=== PATIENT | female | born 1945 | race Caucasian/White ===

== ENCOUNTER 2019-03-22 06:20 | Inpatient (IN) ==
[2019-03-22] MEDS ORDERED: LR 1,000 ML ONE (07:11)
--- NOTE | 2019-03-22 07:17 | EKG Report ---
Test Performed on : 03/22/2019 07:06:51 AM Test Reason : Preop Blood Pressure : / mmHG Vent. Rate : 086 BPM Atrial Rate : 086 BPM P-R Int : 134 ms QRS Dur : 076 ms QT Int : 366 ms P-R-T Axes : 265 021 148 degrees QTc Int : 437 ms Unusual P axis and short NH, probable junctional tachycardia. with premature atrial complexes. ST & T wave abnormality, consider lateral ischemia Abnormal ECG When compared with ECG of 30-APR-2011 09:53, Junctional rhythm. has replaced Sinus rhythm. ST now depressed in Anterolateral leads T wave inversion now evident in Lateral leads Confirmed by Noel NGUYEN, Daylin Main ([id number]) on 03/26/2019 4:08:32 PM
[2019-03-22 07:32] LABS: BASO# 0.02 X1000 (0.0-0.2); BASO% 0.1 % (0.0-0.8); HEMATOCRIT 47.9 % (37.0-47.0); IMM GRAN# 0.06 X1000 (0.0-0.04); IMM GRAN% 0.3 % (0.0-0.5); MCH 28.8 PG (27-31); MCHC 33.4 g/dL (33-37); MCV 86.3 FL (81-99); MONO# 1.25 X1000 (0.11-0.59); NEUT# 14.83 X1000 (1.4-6.5); NEUT% 83.6 % (42.2-75.2); PLT 465 X1000 (130-400); RBC 5.55 XMIL (4.2-5.4); RDW 14.1 % (11.5-14.5); WBC 17.76 X1000 (4.8-10.8)
[2019-03-22] MEDS ORDERED: XYLOCAINE-MPF 2% ONE (07:46)
[2019-03-22] MEDS ORDERED: DIPRIVAN 1% ONE ×2 (07:47→08:18)
[2019-03-22 08:22] LABS: ALB/GLOB RATIO 1.3; ALBUMIN 4.5 g/dL (3.5-5.0); CALCIUM 10.8 mg/dL (8.8-10.2); TOTAL BILIRUBIN 0.76 mg/dL (0.20-1.00); TOTAL PROTEIN 8.1 g/dL (6.3-8.3)
[2019-03-22 08:27] LABS: POTASSIUM 2.5 mmol/L (3.5-5.1)
--- NOTE | 2019-03-22 09:12 | Diag Imaging Result Doc PS360 ---
CHEST-PORTABLE - 03/22/2019 INDICATION: s/p EGD, gastroparesis COMPARISON: 04/30/2011 FINDINGS: The lungs are normally expanded and clear. Heart size and mediastinal contours are normal. No pneumothorax or pleural effusion. IMPRESSION: Negative exam. Electronically signed by Umair Price 03/22/2019 9:10 AM
--- NOTE | 2019-03-22 10:15 | OPERATIVE NOTE ---
PROCEDURE DATE: 03/22/2019 PREOPERATIVE DIAGNOSES: 1. Upper abdominal pain. 2. Bloating. 3. Nausea. 4. Bilious vomiting with ultrasound revealing massive gastric dilation with no history of peptic ulcer disease. POSTOPERATIVE DIAGNOSES: Gastroparesis with 400 plus mL of bile in the stomach. PROCEDURE PERFORMED: Esophagogastroduodenoscopy, Helicobacter pylori biopsy. PROCEDURE IN DETAIL: The patient was brought to the GI lab after satisfactory IV sedation with propofol and anesthesia standby. Flexible gastroscope was introduced transorally without difficulty. Distal esophagus had some pooling of some greenish bile. On entry into the stomach, there was a massive amount of bile that was aspirated away, 400 plus mL. The stomach revealed significant dilation but no evidence of gross pathology including ulcer disease or carcinoma. The pylorus was widely patent. Duodenum appeared satisfactory. An H. pylori biopsy was taken at the distal antrum to rule out H. Pylori as the patient is a nondiabetic. Retroflexion revealed no ulceration at the lesser curve of the GE junction but, again, a large dilated patulous stomach. The scope was removed. The patient tolerated the procedure well with no evidence of aspiration. Her potassium is 2.5 so she will be admitted for potassium correction, gastric emptying study with nuclear medicine tomorrow, and a GI consultation. This does not appear surgical at this time. cc: Jose James MD
[2019-03-22 10:48] LABS: ALLEN TEST YES; BE 11.5 mmoll (-3.0-3.0); BLOOD TYPE ARTERIAL; HCO3-(ACT) 33.7 mmoll (20.0-26.0); METHB 1.4 % (0.0-1.5); O2HB 90.4 % (95.0-99.0); PCO2(98.6) 44 mmHg (35-45); PO2(98.6) 62 mmHg (60-100); SAMPLE BLOOD; SAO2 93.7 % (95.0-100.0); THB 15.8 g/dL (11.5-17.4); pH(98.6) 7.52 (7.35-7.45)
[2019-03-22 10:49] LABS: MODALITY ROOM AIR
[2019-03-22] MEDS: POTASSIUM CHLORIDE 10% LIQUID PO SCH ×2 (11:19→20:29)
[2019-03-22] MEDS: D5 1/2 NS + KCL 30 MEQ 1,000 ML IV SCH (11:19)
[2019-03-22] MEDS ORDERED: SODIUM CHLORIDE 0.9% INJ SCH (11:30)
[2019-03-22] MEDS: METAMUCIL PO SCH (12:27)
[2019-03-22] MEDS: MIRALAX PO SCH (12:27)
--- NOTE | 2019-03-22 13:08 | CONSULTATION ---
DATE OF CONSULTATION: 03/22/2019 CHIEF COMPLAINT: This is a medical consultation for hypokalemia. The patient had been having vomiting on and off for the past 5 days and was admitted this a.m. for an EGD per General Surgery. HISTORY OF PRESENTING ILLNESS: This is a 74-year-old female, who was admitted by General Surgery after she was having vomiting of bile on and off for the past 5 days, was found to have a gastric outlet obstruction, had an EGD per Dr. James, general surgeon. The patient states she had approximately a half a gallon of fluid removed from her abdomen this morning. She tolerated the procedure well. Her laboratory data showed a potassium of 2.5, a BUN of 45, a creatinine of 2.0, and so we will follow along during her hospitalization for medical management. PAST MEDICAL HISTORY: Hypothyroidism and vitamin D deficiency. PAST SURGICAL HISTORY: Hysterectomy, appendectomy, bilateral knee replacement, and bilateral shoulder replacement. FAMILY HISTORY: Reviewed and noncontributory. SOCIAL HISTORY: She currently lives alone. Denies any tobacco, alcohol, or illicit drug use. ALLERGIES: Lisinopril, latex, and natural rubber. HOME MEDICATIONS: She takes vitamin D3 2000 units p.o. daily, [employer] 10 1 p.o. b.i.d, and Synthroid 125 mcg p.o. daily. LABORATORY DATA: Showed a white blood cell count of 17.76, hemoglobin 16, hematocrit 47.9, platelets 465. Sodium 143, potassium 2.5, chloride 92, CO2 30, BUN of 45, creatinine 2, glucose 126. Carcinoembryonic AG 2.7. EKG showed a probable junctional tachycardia with premature atrial complexes at 86. Chest x-ray showed a negative exam. REVIEW OF SYSTEMS: She denied any fever, chills, blurred vision, dizziness, chest pain, coughing, shortness of breath. She denied any abdominal pain. She has had nausea and vomiting. Denied any constipation, diarrhea, burning or hurting with urination. PHYSICAL EXAMINATION: Vital signs: On arrival, she had a temperature of 97, pulse 83, respirations 16, blood pressure 122/78, saturating 95% on room air. General: This is a 74-year- old female , who is lying in the bed and answers questions appropriately. HEEMNT: Normocephalic, atraumatic. Normal ENT inspection. Oropharynx and nares are clear. Eyes: Pupils are equal, round, and reactive to light and accommodation. Extraocular movements are intact. Neck: Normal inspection. Normal range of motion. Lungs: Clear to auscultation bilaterally with equal lung expansion and chest wall movement. Heart: Regular rate and rhythm. No murmurs, rubs, or gallops. Abdomen: Soft, nontender, nondistended. Bowel sounds were present x4 quadrants. Musculoskeletal: She had 5/5 strength x4 extremities. Neurological: The cranial nerves II through XII were grossly intact. ASSESSMENT: 1. Gastric outlet obstruction with nausea and vomiting status post esophagogastroduodenoscopy per General Surgery today. 2. Hypokalemia. 3. Acute kidney injury. 4. Leukocytosis. PLAN: She was admitted to the Surgical Unit, placed on telemetry, incentive spirometry. She is on a clear liquid diet. She is status post her EGD, where she states they removed approximately a half a gallon of fluid. I do not have those reports available at this time but GI has also been consulted. She was started on potassium 20 mEq p.o. t.i.d., D5 and a half NS at 75 mL an hour. Continue her home medication. Recheck CBC, BMP in the a.m. Further orders after seen by attending and by consultants. We thank you for the opportunity to consult on this patient through her hospitalization. Dictated by RAMIREZ Booker for Guilherme Quinteros MD cc: RAMIREZ Booker MD Hugh C. Nabers, MD
[2019-03-22 14:38] LABS: URINE SOURCE CLEAN CATCH
[2019-03-22 14:44] LABS: BILIRUBIN URINE SMALL (NEGATIVE); BLOOD URINE NEGATIVE (NEGATIVE); COLOR YELLOW; GLUCOSE URINE NEGATIVE (NEGATIVE); KETONE URINE NEGATIVE (NEGATIVE); LEUKOCYTES URINE TRACE (NEGATIVE); NITRITE URINE NEGATIVE (NEGATIVE); PH URINE 5.5; PROTEIN URINE 50 mg/dL (NEGATIVE); SP GRAVITY URINE 1.023; TURBIDITY URINE HAZY (CLEAR); URINE BACTERIA NEGATIVE /HPF; URINE RBC <10 /HPF (<10); UROBILINOGEN URINE NORMAL (NORMAL)
[2019-03-22 14:45] LABS: UR EPITHELIAL CELLS <10 /HPF (<10)
[2019-03-22] MEDS ORDERED: ZOFRAN IV PRN (16:40)
--- NOTE | 2019-03-22 16:40 | GASTROENTEROLOGY CONSULTATION ---
DATE: 03/22/2019 ATTENDING PHYSICIAN: Jose James MD PRIMARY CARE DOCTOR: Leesa Boo MD REASON FOR CONSULTATION: Nausea/vomiting and gastric distension seen on EGD done today by Dr. James. HISTORY OF PRESENT ILLNESS: Ms Thompson is a 74-year-old female, who was admitted as an outpatient to have an EGD done with Dr. James, which showed evidence of bile retention in the stomach, 400 mL of bile was aspirated, and stomach biopsies obtained. According to the report of the EGD, there was no pyloric stenosis or gastric outlet obstruction noted. The patient has been having projectile vomiting for a few weeks. She had an ultrasound done which showed evidence of possible gastric distension. She also had possible nonvisualization or a contracted gallbladder. She has had a Cologuard done in October. She does not know the results of the test yet. She denies any vomiting blood or passing blood in the stools. She has history of constipation in the past. She takes narcotics at home as needed. She does takes psyllium at home for constipation. PAST MEDICAL HISTORY: Constipation. PAST SURGICAL HISTORY: Hysterectomy, appendectomy, joint replacement, and EGD done today. SOCIAL HISTORY: No history of alcohol or tobacco. No history of illicit drug abuse. MEDICATIONS AT HOME: Levothyroxine 125 mcg at home and vitamin D3 of 2000 units once daily and [place] as needed. FAMILY HISTORY: Noncontributory. ALLERGIES: Lisinopril and latex. REVIEW OF SYSTEMS: Denies any fevers, rigors, chills, chest pain, shortness of breath, dyspnea. Denies any vomiting or passing blood in the stools. She does complain of intermittent bilious vomiting and even throwing up her ice chips. She does complain of intermittent constipation. PHYSICAL EXAMINATION: Vital Signs: Temperature 97.5 degrees, pulse rate 76 per minute, respiratory rate 20, blood pressure of 140/63, saturating 97% on room air. Body weight: 205 pounds, BMI of 37.5 kg/m2 which is obese. General: Lying in bed, in no acute distress. HEENT: No pallor. No icterus. Pupils equal, reactive to light. Neck: Supple. Abdomen: Obese, soft. Mild discomfort in the periumbilical region. No rebound or guarding. Extremities: No cyanosis, clubbing. Neurological: Alert, awake, oriented x3. DIAGNOSTIC STUDIES: Hemoglobin 16, hematocrit 47.9, white count 17.76, platelet count 465,000, MCV 86.3. ABG showing pH 7.52, pCO2 of 45, PO2 of 62, this is on room air. Sodium 140, potassium 2.5, chloride 92, bicarbonate 30, anion gap 21, BUN 45, creatinine 2, glucose 126, calcium 10.8, total bilirubin 0.76, AST 14, ALT 12, alkaline phosphatase 71, total protein 8.1, albumin 4.5. CEA 2.7. Ultrasound of the abdomen done on 03/20/2019 showed: 1. Severely distended stomach suggesting gastroparesis or gastric outlet obstruction. 2. Nonvisualization of the gallbladder. 3. Borderline spleen size. 4. Common bile duct measuring 7 mm. Chest x-ray done today showed negative exam. ASSESSMENT AND PLAN: 1. Bilious vomiting. 2. Gastric distension, bile noted in the stomach. 3. Nonvisualization of the gallbladder. 4. Bloating. 5. Abdominal pain. 6. Hypokalemia. 7. Hypercalcemia. 8. Leukocytosis. 9. Elevated BUN and creatinine. RECOMMENDATIONS: We will need to obtain the results of Cologuard testing from Dr Boo's office. We will start her on PPIs in the form of Nexium once daily. We will start on Carafate 1 g every 6 hours. She will continue on IV fluids per Dr James. We will start her on MiraLAX and Metamucil for constipation. She may benefit from a HIDA scan. We will leave to the discretion of Dr James. She has hypokalemia and hypercalcemia and renal insufficiency. For that, Dr James has consulted the hospitalist team. Above plans were discussed with the patient, and all questions were answered. We will also follow up the results of the gastric emptying study. Further recommendations to follow pending the hospital course. cc: MD Jose Hyde MD Hiteshri S. Bhavsar, MD
[2019-03-22] MEDS: ZOFRAN IV PRN ×2 (17:07→21:30)
[2019-03-22] MEDS: NEXIUM IV SCH (20:29)
[2019-03-22] MEDS: CARAFATE LIQUID PO SCH (20:29)
[2019-03-22] MEDS: NORCO-10 PO SCH (22:12)
[2019-03-22] MEDS: PERIDEX MT SCH (22:13)
[2019-03-23] MEDS: D5 1/2 NS + KCL 30 MEQ 1,000 ML IV SCH (00:35)
[2019-03-23] MEDS: CARAFATE LIQUID PO SCH ×5 (01:50→20:44)
--- NOTE | 2019-03-23 02:07 | PROGRESS NOTE ---
DATE: 03/22/2019 REQUESTING PHYSICIAN: Dr. James. The patient is not many medical problems. A 74-year-old, looks like she has got hypothyroidism. She is obese, but as far as I can tell, no diabetes, but she presents with a large amount of liquid kind of reaccumulated in her stomach, dilated stomach, uncertain etiology. She was admitted for treatment. She was found to be in acute kidney injury, hypokalemia, and have evidence of either severe gastroparesis or gastric outlet obstruction. Dr. James' note states that the pylorus though is completely patent. I am not sure if we may need to do a small-bowel follow-through as well, but a gastroparesis study has been ordered for tomorrow, which I think will identify gastroparesis, and then possible treatment associated. We will continue IV fluids for her acute kidney injury and supplement her potassium and follow it closely. This is a [id number] encounter note with Isabelle Martínez cc: MD Jose Negrete MD MTDD
[2019-03-23] MEDS: ZOFRAN IV PRN ×4 (02:33→14:15)
[2019-03-23 06:18] LABS: BASO# 0.02 X1000 (0.0-0.2); BASO% 0.1 % (0.0-0.8); EOS# 0.05 X1000 (0.0-0.7); EOS% 0.4 % (0.0-10.0); HEMATOCRIT 44.6 % (37.0-47.0); HEMOGLOBIN 14.8 g/dL (12.0-16.0); IMM GRAN# 0.04 X1000 (0.0-0.04); IMM GRAN% 0.3 % (0.0-0.5); LYMPH% 9.3 % (20.5-51.1); MCH 29.4 PG (27-31); MCHC 33.2 g/dL (33-37); MCV 88.5 FL (81-99); MONO# 1.81 X1000 (0.11-0.59); MONO% 12.9 % (1.7-9.3); MPV 11.1 FL (7.4-10.4); PLT 371 X1000 (130-400); RBC 5.04 XMIL (4.2-5.4); RDW 14.2 % (11.5-14.5); WBC 14.02 X1000 (4.8-10.8)
[2019-03-23 06:37] LABS: HEMOGLOBIN A1C 5.2 % (4.8-6.0)
[2019-03-23 06:40] LABS: CALCIUM 9.7 mg/dL (8.8-10.2); CREATININE 2.1 mg/dL (0.5-0.9)
[2019-03-23] MEDS ORDERED: SYNTHROID PO SCH (07:00)
[2019-03-23] MEDS ORDERED: NS + KCL 20 MEQ 1,000 ML IV SCH (08:15)
--- NOTE | 2019-03-23 10:11 | Diag Imaging Result Doc PS360 ---
EXAM: GASTRIC EMPTYING HISTORY: Gastric distension on EGD with Dr James TECHNIQUE: Nuclear medicine gastric emptying exam COMPARISON: None. FINDINGS: 586 uCi of sulfur colloid ingested with neck biscuit. Imaging for two hours performed. There is normal emptying occurs during the exam. IMPRESSION: Markedly delayed gastric emptying. Electronically signed by Yash Taylor 03/23/2019 10:08 AM
[2019-03-23] MEDS: MIRALAX PO SCH (10:29)
[2019-03-23] MEDS: PERIDEX MT SCH ×2 (10:29→20:44)
[2019-03-23] MEDS: VITAMIN D PO SCH (10:29)
[2019-03-23] MEDS: NORCO-10 PO SCH ×3 (10:29→22:18)
[2019-03-23] MEDS: METAMUCIL PO SCH (10:30)
--- NOTE | 2019-03-23 12:02 | Diag Imaging Result Doc PS360 ---
CT ABDOMEN/PELVIS W/O CONTRAST - 03/23/2019 INDICATION: gastroparesis COMPARISON: None FINDINGS: The lung bases are clear and the heart size is normal. The stomach and proximal small bowel is severely distended compatible with small bowel obstruction. Indeed, numerous distal small bowel loops are severely collapsed. In the right lower quadrant, there is a round heterogeneous dense object causing the obstruction. This is compatible with a gallstone. This measures 2.7 cm in diameter. The colon is normal. The gallbladder itself is very collapsed with wall thickening and some gas presumably from the fistula extending into the small bowel. No free air or free fluid. Uterus is absent. Urinary bladder and rectum are normal. There are moderate degenerative changes of the spine. No acute or suspicious bony lesion. IMPRESSION: 1. Gallstone ileus with obstructing stone in the right lower quadrant. 2. Severely inflamed gallbladder with advanced trace amount of gas indicating the fistula. 3. This report was discussed with Dr. James on 03/23/2019 at 12:00 PM and was readback. This exam was performed using automated exposure control, adjustment of mA or kV according to patient size, and/or use of iterative reconstruction technique Electronically signed by Umair Price 03/23/2019 12:00 PM
--- NOTE | 2019-03-23 12:51 | Diag Imaging Result Doc PS360 ---
CHEST-PORTABLE - 03/23/2019 INDICATION: NG tube placement COMPARISON: 03/22/2019 FINDINGS: There is a nasogastric tube in good position in the stomach. The chest is grossly clear. There are several severely gaseous distended loops of small bowel as was seen on the CT compatible with small bowel obstruction. IMPRESSION: Good nasogastric tube placement. Electronically signed by Umair Price 03/23/2019 12:48 PM
[2019-03-23 14:04] LABS: CALCIUM 9.8 mg/dL (8.8-10.2); CREATININE 1.9 mg/dL (0.5-0.9); POTASSIUM 3.1 mmol/L (3.5-5.1)
[2019-03-23] MEDS: KEFZOL 1 GM/D5W 1 GM/50 ML IVPB IV SCH ×2 (14:15→20:44)
[2019-03-23] MEDS: MORPHINE IV PRN ×2 (14:15→20:52)
--- NOTE | 2019-03-23 15:44 | Diag Imaging Result Doc PS360 ---
US RENAL 2 (RETROPER) COMPLETE - 03/23/2019 INDICATION: decreased renal function TECHNIQUE: COMPARISON: CT from earlier today FINDINGS: The kidneys and urinary bladder are normal. No hydronephrosis. The right kidney measures 11.2 x 4.7 x 4.9 cm. The left kidney measures 11.9 x 4.9 x 6.6 cm. The urinary bladder contains clear urine. IMPRESSION: Negative exam. Electronically signed by Umair Price 03/23/2019 3:41 PM
[2019-03-23] MEDS: NEXIUM IV SCH (16:14)
[2019-03-23] MEDS ORDERED: CHLORASEPTIC SPRAY MT PRN (16:15)
[2019-03-23] MEDS ORDERED: ZOSYN 3.375 GM in NS 50 ML IV SCH (17:45)
[2019-03-23 17:57] LABS: URINE SOURCE VOIDED
[2019-03-23 18:02] LABS: BILIRUBIN URINE NEGATIVE (NEGATIVE); BLOOD URINE NEGATIVE (NEGATIVE); COLOR YELLOW; GLUCOSE URINE NEGATIVE (NEGATIVE); KETONE URINE NEGATIVE (NEGATIVE); LEUKOCYTES URINE NEGATIVE (NEGATIVE); NITRITE URINE NEGATIVE (NEGATIVE); PROTEIN URINE TRACE mg/dL (NEGATIVE); SP GRAVITY URINE 1.023; TURBIDITY URINE HAZY (CLEAR); UROBILINOGEN URINE NORMAL (NORMAL)
[2019-03-23 18:03] LABS: UR EPITHELIAL CELLS <10 /HPF (<10); URINE BACTERIA NEGATIVE /HPF; URINE RBC <10 /HPF (<10); URINE WBC <10 /HPF (<10)
[2019-03-23 18:12] LABS: UR CREAT RANDOM 153.7 mg/dL (11-20); UR PROT RANDOM 26.6 mg/dL
[2019-03-23] MEDS ORDERED: SODIUM CHLORIDE 0.9% INJ PRN (18:53)
[2019-03-23] MEDS: NS + KCL 20 MEQ 1,000 ML IV SCH (19:52)
--- NOTE | 2019-03-23 22:04 | PROVIDER PROGRESS NOTE ---
Progress Note S: No acute overnight events. No N/V/F. She reports lower abdominal pain and constipation. No BM in 5 days. O: Last Vital Signs Temp 97.8 F 03/23/19 20:15 Pulse 81 03/23/19 20:15 Resp 20 03/23/19 20:15 BP 149/74 03/23/19 20:15 Pulse Ox 99 03/23/19 20:15 Height 5 ft 2 in Weight 207 lb 14.4 oz GEN: awake, alert, NAD HEENT: anicteric, MMM NECK: supple, no JVD PULM: CTAB, no wheezing ABD: soft, abdomen distended and tympanic, mild TTP primarily in lower abdomen, no rebound or guarding EXT: no cce NEURO: nonfocal LABS: 03/23/19 03/23/19 05:35 05:35 WBC 14.02 H Hgb 14.8 Plt Count 371 Sodium 141 Potassium 3.0 L D Chloride 93 L Anion Gap 18 BUN 54 H Creatinine 2.1 H Gl[address] ABDOMEN/PELVIS W/O CONTRAST - 03/23/2019 INDICATION: gastroparesis COMPARISON: None FINDINGS: The lung bases are clear and the heart size is normal. The stomach and proximal small bowel is severely distended compatible with small bowel obstruction. Indeed, numerous distal small bowel loops are severely collapsed. In the right lower quadrant, there is a round heterogeneous dense object causing the obstruction. This is compatible with a gallstone. This measures 2.7 cm in diameter. The colon is normal. The gallbladder itself is very collapsed with wall thickening and some gas presumably from the fistula extending into the small bowel. No free air or free fluid. Uterus is absent. Urinary bladder and rectum are normal. There are moderate degenerative changes of the spine. No acute or suspicious bony lesion. IMPRESSION: 1. Gallstone ileus with obstructing stone in the right lower quadrant. 2. Severely inflamed gallbladder with advanced trace amount of gas indicating the fistula. 3. This report was discussed with Dr. James on 03/23/2019 at 12:00 PM and was readback. A/P: Ms. Blanche Thompson is a 74 year old who presented with N/V, initially thought to be gastric outlet obstruction, found to have SBO from gallstone ileus and acute cholecystits with fistulous tract to SB. She has leukocytosis on cephazolin. VSS. She does not have gastric outlet obstruction or gastroparesis because gastric distension is secondary to SBO. NGT was placed for decompression. # SBO from gallstone ileus: NPO; continue NGT to LIWS; IVFs; antiemetics prn for nausea # Gallstone ileus: surgery following; will need enterotomy for stone removal # Acute cholecystitis with fistula: needs CCY; switched abx to zosyn for better GNR/anaerobic coverage # Hypokalemia: repleting prn # Leukocytosis: trend daily # Stopped PPI and bowel regimen No further GI needs. Treatment is primarily surgical. Will sign off. Please call back with questions or concerns.
--- NOTE | 2019-03-23 22:12 | PROGRESS NOTE ---
DATE: 03/23/2019 SUBJECTIVE: Patient has no major complaints. OBJECTIVE: Blood pressure is 140/71, heart rate of 82, respiratory rate of 24, temperature 97.5 degrees, 96% on room air.Cardiovascular: Regular rate and rhythm. Pulmonary: Bilateral breath sounds. Clear to auscultation. Gastrointestinal: Soft, nontender, nondistended. Bowel sounds are positive. Extremities: No clubbing or cyanosis. Lymphatic: No peripheral edema. Neurological: Nonfocal. LABORATORY DATA: Her creatinine is still elevated at 1.9, it has improved. Potassium is 3.1, which is better, but still there. PROBLEM LIST: 1. We will still continue IV fluids. I do think there is a major issue here obviously. CT scan from today showed a gallstone ileus. She has had a gallstone that has eroded out of her gallbladder and into her small bowel and has caused an obstruction. 2. Gallstone ileus. Plan for cholecystectomy and nasogastric decompression at this point. She has empirically been placed on preoperative antibiotics per Dr. James and we will continue to monitor. 3. Acute kidney injury and hypokalemia. Her numbers were a little worse this morning, so Dr. Martinez has consulted Dr. Dover, who has adjusted her IV fluids. Her creatinine has come down a bit this evening. Her BUN is 52, which is understandable. She is already on Nexium. In any case, we will switch her Synthroid to IV, continue fluids, supplement potassium as needed, and follow. 4. Disposition. Pending her clinical status obviously. She will likely undergo surgery by Dr. Gould tomorrow and anticipate discharge pending that, depending on her course, of course. cc: MD Jose Negrete MD
[2019-03-23] MEDS: POTASSIUM CHLORIDE 20 MEQ/SWI 20 MEQ/100 ML IVPB IV SCH (23:26)
[2019-03-24] MEDS: POTASSIUM CHLORIDE 20 MEQ/SWI 20 MEQ/100 ML IVPB IV SCH (01:45)
[2019-03-24] MEDS: CARAFATE LIQUID PO SCH ×4 (03:08→20:49)
[2019-03-24] MEDS ORDERED: NS 1,000 ML IV SCH (04:00)
[2019-03-24] MEDS: ZOSYN 3.375 GM in NS 50 ML IV SCH ×2 (04:40→09:30)
[2019-03-24 05:41] LABS: BASO# 0.02 X1000 (0.0-0.2); BASO% 0.2 % (0.0-0.8); EOS# 0.12 X1000 (0.0-0.7); EOS% 1.3 % (0.0-10.0); HEMATOCRIT 38.7 % (37.0-47.0); HEMOGLOBIN 12.7 g/dL (12.0-16.0); MCH 30.2 PG (27-31); MCHC 32.8 g/dL (33-37); MCV 91.9 FL (81-99); MONO# 1.66 X1000 (0.11-0.59); MONO% 18.6 % (1.7-9.3); MPV 10.9 FL (7.4-10.4); NEUT# 6.31 X1000 (1.4-6.5); NEUT% 70.9 % (42.2-75.2); PLT 308 X1000 (130-400); RBC 4.21 XMIL (4.2-5.4); RDW 14.2 % (11.5-14.5); WBC 8.91 X1000 (4.8-10.8)
[2019-03-24] MEDS: NS + KCL 20 MEQ 1,000 ML IV SCH (06:10)
[2019-03-24] MEDS: SYNTHROID IV SCH (06:12)
[2019-03-24 06:19] LABS: CALCIUM 8.2 mg/dL (8.8-10.2); CREATININE 1.4 mg/dL (0.5-0.9); POTASSIUM 3.6 mmol/L (3.5-5.1)
[2019-03-24] MEDS ORDERED: D5W 1,000 ML IV SCH (07:15)
[2019-03-24] MEDS: NORCO-10 PO SCH (08:27)
--- NOTE | 2019-03-24 08:37 | Diag Imaging Result Doc PS360 ---
EXAM: FLAT/UPRIGHT ABD/1 VIEW CHEST HISTORY: gastroparesis TECHNIQUE: Flat and upright with chest, four views COMPARISON: 03/23/2019 FINDINGS: The lungs are well expanded. No pneumonia. No cardiomegaly. There is a nasogastric tube within the stomach. No free air beneath the diaphragm. Air distended loops of small bowel remain with air-fluid levels. No organomegaly. IMPRESSION: Persistent small bowel obstruction. Electronically signed by Yash Taylor 03/24/2019 8:35 AM
--- NOTE | 2019-03-24 08:43 | PROGRESS NOTE ---
DATE: 03/24/2019 SUBJECTIVE: Ms Blanche Thompson is a patient of Dr. Jose James. She was admitted with nausea and vomiting and a CT scan of her abdomen and pelvis suggests a gallstone ileus with a stone in her distal ilium which appears to be obstructing. Dr. [place] and he asked that I evaluate her and care for her during his absence. Yesterday an NG tube was placed and clinically, she feels better. She was hydrated overnight with improvement of her BUN and creatinine. It went from 52 and 1.9 to 40 and 1.4. Her white blood cell count is normal. It went from 14 to 8. Hematocrit is 38%. Her abdomen is not tightly distended and she is putting out bilious drainage from her NG tube. She states she has had no cramping. OBJECTIVE: Her heart rate is 71, blood pressure 135/65. O2 saturation 95%. She is afebrile. She is on IV Zosyn mainly for gallbladder disease. She is also receiving IV fluids. PLAN: I will plan exploratory laparotomy today for removal of this gallstone that appears to be obstructing in her distal ilium. We will get a flat and upright abdominal film prior to surgery. We will not plan to perform a cholecystectomy but leave this fistula between her gallbladder and probably duodenum alone. I have discussed the procedure in detail with her including risks, she understands this is major intraabdominal surgery and risks include bleeding, infection. She wants to proceed. cc: MD Jose Mckinney MD
[2019-03-24] MEDS: PERIDEX MT SCH ×2 (09:00→20:49)
[2019-03-24] MEDS: VITAMIN D PO SCH (09:00)
[2019-03-24] MEDS ORDERED: ROBINUL ONE ×3 (10:54→12:48)
[2019-03-24] MEDS ORDERED: XYLOCAINE-MPF 2% ONE (10:54)
[2019-03-24] MEDS ORDERED: DECADRON ONE (10:54)
[2019-03-24] MEDS ORDERED: FENTANYL ONE (10:54)
[2019-03-24] MEDS ORDERED: ZOFRAN ONE ×2 (10:54→13:30)
[2019-03-24] MEDS ORDERED: DIPRIVAN 1% ONE (10:54)
[2019-03-24] MEDS ORDERED: SODIUM CHLORIDE 0.9% 10 ML ONE (11:01)
[2019-03-24] MEDS ORDERED: NORCURON ONE (11:01)
[2019-03-24] MEDS ORDERED: LR 1,000 ML ONE (11:19)
[2019-03-24] MEDS ORDERED: SENSORCAINE-MPF 0.5%/EPI 1:200,000 ONE (11:44)
[2019-03-24] MEDS ORDERED: NEOSTIGMINE ONE (12:48)
[2019-03-24] MEDS ORDERED: MORPHINE ONE (13:25)
[2019-03-24] MEDS ORDERED: OFIRMEV 1000 MG/ISOTONIC SOLN 1,000 MG/100 ML BOTTLE ONE (13:42)
[2019-03-24] MEDS ORDERED: ZOFRAN IV PRN (13:59)
[2019-03-24] MEDS ORDERED: LR 1,000 ML IV SCH (14:00)
--- NOTE | 2019-03-24 15:38 | OPERATIVE NOTE ---
PROCEDURE DATE: 03/24/2019 PREOPERATIVE DIAGNOSIS: Gallstone ileus. POSTOPERATIVE DIAGNOSIS: Small bowel obstruction secondary to gallstone ileus. PRINCIPAL PROCEDURE: Small bowel enterotomy with removal of 3 cm gallstone from the ilium with primary closure of the small bowel enterotomy. SURGEON: Aleena Gould MD. WALL WASHER: Dr. Jose James. ANESTHESIA: General. ESTIMATED BLOOD LOSS: 25 mL. DRAINS: None. INDICATIONS: Ms Blanche Thompson is a 74-year-old white female patient Dr. Jose James who was admitted with a small bowel obstruction. A CT scan was performed which documented a gallstone in the ilium causing the obstruction consistent with gallstone ileus. This stone appeared to be too large to pass out of the ilium. It was causing a small bowel obstruction which has not improved over 24 hours. An exploratory laparotomy was recommended. FINDINGS: She had a 3 cm round stone in the ilium which was causing obstruction. We were able to remove that stone through a transverse incision antimesenteric side of the ilium and we closed this enterotomy primarily in 2 layers. There was some contamination or spillage of bowel contents when we removed the stone but we thoroughly irrigated the wound and abdomen prior to closure. No other intraabdominal pathology was noted. We did not look to perform a cholecystectomy. PROCEDURE: Dr. Jose James was present throughout the case. His presence was necessary for help with retraction and to control contamination from the small bowel opening. He was helpful in presenting the small bowel so that I could sew it and he was also helpful in closing the midline incision. She was brought to the operating room, placed supine, received general anesthesia, was intubated. Rodriguez catheter tube was placed. She already had an NG tube in place. Her abdomen was prepped and draped in a sterile field. We used an Ioban on the skin. I made a small midline incision based around the umbilicus with a 10 blade scalpel was carried down through the skin and subcutaneous tissue to the midline fascia, which I carefully incised using the cautery. The abdomen was entered and explored. We quickly were able to find the loop of ilium with the stone in it where the obstruction was present. This was a near total obstruction but not totally but the bowel was dilated proximal to the stone. I brought the stone up into our midline incision and I made a transverse incision across the ilium antimesenteric border and the stone was removed. We did have some contamination of small bowel contents at this time. We removed them with suction and I closed this small-bowel enterotomy transversely in 2 layers. The first layer was a running baseball stitch with a 3-0 Vicryl stitch and then I reinforced this closure with interrupted 3-0 silk Lembert stitches. We were happy with the closure. We still had a sufficient lumen. We milked some fluid and air past this closure to be sure that it was not leaking and it was not. We took time to thoroughly irrigate out the abdomen with warm saline and the irrigation was removed with suction. We placed the bowel back in its anatomically correct position. We placed the greater omentum over the surface of the bowel and then we reclosed our midline incision. I closed the peritoneal 1st with a running 0 Vicryl stitch. I closed the midline fascia with a running #1 Maxon stitch. Again, I thoroughly irrigated the wound and then we closed the skin loosely with a skin clip side seam tender and dressings were applied. She tolerated the procedure well with plans for her to go the recovery room and then return to the floor. She still has her NG tube and Rodriguez catheter tube in place. cc: MD Jose Zuluaga MD
[2019-03-24] MEDS: MORPHINE IV PRN (16:33)
[2019-03-24] MEDS: ZOSYN 2.25 GM in NS 50 ML IV SCH ×2 (16:40→20:49)
--- NOTE | 2019-03-24 18:25 | PROGRESS NOTE ---
DATE: 03/24/2019 SUBJECTIVE: The patient has no major complaints. OBJECTIVE: vital signs: Blood pressure 121/55, heart rate 77, respiratory rate 12, temperature 97.7 degrees, and oxygen saturation 94% on 2 L. Cardiovascular: Regular rate and rhythm. Pulmonary: Bilateral breath sounds. Clear on auscultation. Gastrointestinal: Soft, nontender, nondistended. Bowel sounds are positive. She is seen postop. Seems to be doing okay. LABORATORIES: White count 8, hemoglobin and hematocrit 12 and 38, platelets 308,000. Sodium is up to 150. BUN and creatinine of 40 and 1.4. Urine sodium is 18. All that is most consistent with prerenal azotemia. PROBLEM LIST: 1. Gallstone ileus. She is status post bowel resection today per Dr. Gould. We will continue IV fluids and pain control. She was placed on preoperative antibiotic, cefazolin, but that was changed to Zosyn. I initially changed it, then stopped it, and then we put her back on it per Dr. Elmore. Her GFR is a little on the low side, so I am going to adjust that a bit. 2. Acute kidney injury. That is also resolved. Her hypernatremia is likely secondary to infusions and possibly Zosyn too. That has fairly high sodium content. She was on D5 per Renal and now she is on lactated Ringer's which is hypotonic and should be effective. We will repeat her sodium tomorrow. 3. Hypokalemia. That also is actually somewhat improved. DISPOSITION: Waiting surgical recovery essentially. cc: MD Jose Negrete MD
[2019-03-24] MEDS: OFIRMEV 1000 MG/ISOTONIC SOLN 1,000 MG/100 ML BOTTLE IV SCH (20:49)
[2019-03-25] MEDS: CARAFATE LIQUID PO SCH (01:26)
[2019-03-25] MEDS: MORPHINE IV PRN ×3 (01:26→13:44)
[2019-03-25] MEDS: OFIRMEV 1000 MG/ISOTONIC SOLN 1,000 MG/100 ML BOTTLE IV SCH ×4 (01:26→20:15)
[2019-03-25] MEDS: ZOSYN 2.25 GM in NS 50 ML IV SCH ×5 (03:53→20:58)
[2019-03-25] MEDS: LOVENOX SUBQ SCH (05:46)
[2019-03-25] MEDS: SYNTHROID IV SCH ×2 (05:46→06:08)
[2019-03-25 05:51] LABS: BASO# 0.01 X1000 (0.0-0.2); BASO% 0.1 % (0.0-0.8); EOS# 0.01 X1000 (0.0-0.7); EOS% 0.1 % (0.0-10.0); HEMATOCRIT 43.6 % (37.0-47.0); IMM GRAN# 0.05 X1000 (0.0-0.04); IMM GRAN% 0.3 % (0.0-0.5); LYMPH# 0.69 X1000 (1.2-3.4); LYMPH% 4.8 % (20.5-51.1); MCH 29.1 PG (27-31); MCHC 32.1 g/dL (33-37); MCV 90.6 FL (81-99); MONO# 1.52 X1000 (0.11-0.59); MONO% 10.5 % (1.7-9.3); MPV 11.3 FL (7.4-10.4); NEUT# 12.14 X1000 (1.4-6.5); NEUT% 84.2 % (42.2-75.2); PLT 307 X1000 (130-400); RBC 4.81 XMIL (4.2-5.4); RDW 14.4 % (11.5-14.5); WBC 14.42 X1000 (4.8-10.8)
[2019-03-25 06:21] LABS: CALCIUM 9.3 mg/dL (8.8-10.2); CREATININE 1.5 mg/dL (0.5-0.9); PHOSPHORUS 3.3 mg/dL (2.7-4.5); POTASSIUM 3.7 mmol/L (3.5-5.1)
--- NOTE | 2019-03-25 06:45 | NEPHROLOGY PROGRESS NOTE ---
DATE: 03/24/2019 REASON FOR ADMISSION: Hypokalemia gastroparesis. REASON FOR CONSULTATION: Acute kidney injury in the setting of gallstone ileus. CONSULTING PHYSICIAN: Dr. James. HISTORY OF PRESENT ILLNESS: This is a 74-year-old female who was admitted to the hospital for bowel obstruction. She had a CT scan which indicated a gallstone of the ileum with an obstruction. The patient initially had a creatinine of 1.9 on admission. (It appears in October of this year she had normal renal function.) Her creatinine baljeet to 2.1. We were asked to see the patient. She was given some IV fluids. Today her creatinine is back down to 1.4. She is waiting to go to surgery for intervention at this time. PAST MEDICAL HISTORY: Hypothyroidism, vitamin D deficiency. PAST SURGICAL HISTORY: Hysterectomy, appendectomy, bilateral knee replacement, bilateral shoulder replacement. ALLERGIES: Lisinopril, latex, natural rubber. HOME MEDICATIONS: Vitamin D3, [place], Synthroid. FAMILY HISTORY: Noncontributory. SOCIAL HISTORY: She lives alone. Her daughter is at the bedside. No ETOH, tobacco, or illicit drug use. REVIEW OF SYSTEM: Nausea, vomiting. PHYSICAL EXAMINATION: Vital Signs: Temperature 98.1 degrees, pulse 79, respiratory rate 16, blood pressure 146/79. Intake 1.5 L. Output 3 L. 600 of this was urine output. The remainder was NG-tube drainage. General: This is an elderly female, sitting up in bed. She is awake and alert. She is in no acute distress. HEENT: Normocephalic, atraumatic. BRANDAN. She has air and bilious material through suction. Oral mucosa dry. Neck: Supple. No JVD. Cardiovascular: Regular rate and rhythm. Pulmonary: She is clear. Abdomen: Soft, with positive bowel sounds. Denies tenderness. Does have NG tube suction noises noted. : Yellow urine. Extremities: No clubbing, cyanosis, or edema. Integumentary: Skin is warm and dry. Neurologic: Grossly nonfocal. LAB DATA: Sodium 150, potassium 3.6, CO2 25, creatinine 1.4. ASSESSMENT AND PLAN: 1. Acute kidney injury. She has responded nicely to IV fluids. Imaging negative. No additonal changes. 2. Hypernatremia. Change her IV fluids from normal saline to D5W. 3. Recheck her labs in the morning. She is to go to surgery later today. Dictated by RAMIREZ Arias for Bandar Dover MD cc: MD Jose Galloway MD [facility]PITALDeidre
--- NOTE | 2019-03-25 08:13 | PROGRESS NOTE ---
DATE: 03/25/2019 SUBJECTIVE: Ms Blanche Thompson is a 74-year-old white female, patient of Dr. Juan James, who is now postop day 1 from exploratory laparotomy with removal of a gallstone from the ilium that was causing a small bowel obstruction. We made a small transverse anti mesenteric incision in the small bowel to remove this stone and then closed this defect primarily. She had an NG tube after surgery. I removed that this morning. She is awake, she says she feels better. She has had no significant bowel activity. Her midline wound is dressed. Her abdomen is still distended. She has had no flatus. OBJECTIVE: Vital Signs: Heart rate is 75, blood pressure 124/55, O2 saturation 96%. She is afebrile. She had [address] in [address]. She is receiving Lovenox. We have removed her intermittent compression hose. She still has a Rodriguez catheter tube in place. LABORATORY DATA: Her BUN and creatinine are 36 and 1.5. Her white blood cell count is 14, hematocrit 43%. PLAN: I removed her NG tube. We will keep her n.p.o. except for ice chips. We will begin increasing her activity and ask Physical Therapy to start seeing her tomorrow. We will plan to remove her Rodriguez catheter tube tomorrow at 7 a.m. Will keep her IV Zosyn going in for now because we did have some bowel content contamination within our midline wound during this procedure. cc: MD Jose Mckinney MD
[2019-03-25] MEDS: PERIDEX MT SCH ×2 (08:25→20:15)
[2019-03-25] MEDS: VITAMIN D PO SCH (08:26)
[2019-03-25] MEDS: D5 1/2 NS + KCL 20 MEQ 1,000 ML IV SCH (08:32)
--- NOTE | 2019-03-25 15:49 | PROGRESS NOTE ---
DATE: 03/25/2019 SUBJECTIVE: She looks well. Her NG tube has been removed. OBJECTIVE: Vitals: Blood pressure 123/62, heart rate 73, respiratory rate 20, temperature 97.5 degrees, 92% on room air. Cardiovascular: Regular rate and rhythm. Pulmonary: Bilateral breath sounds clear to auscultation. GI: Soft, nontender, nondistended. Bowel sounds are positive. LABORATORY DATA: White count is 14, hemoglobin and hematocrit 14 and 43, platelets 307,000. Creatinine at 1.5 which may be close to her baseline. This is new, which improved a little bit since surgery, but we will continue to follow. 1. Gallstone ileus. She is status post a gallstone removal. She had an enterotomy of her small bowel and primary closure. Dr. Gould is managing for Dr. James at this time. She is on Zosyn, and we will continue that for now because there may be a little bit of peritonitis. 2. Acute kidney injury. This is slowly improving. She is on D5 half-normal with potassium. That seems to be doing okay. Renal is following. Appreciate their assistance. 3. Hypokalemia. We will supplement and follow. 4. Disposition. Anticipate discharge once her ileus has resolved and all that. We are working on trying to get her up and around. cc: MD Jose Negrete MD
[2019-03-26] MEDS: D5 1/2 NS + KCL 20 MEQ 1,000 ML IV SCH ×2 (00:55→18:03)
[2019-03-26] MEDS: OFIRMEV 1000 MG/ISOTONIC SOLN 1,000 MG/100 ML BOTTLE IV SCH ×3 (01:14→18:06)
[2019-03-26] MEDS: ZOSYN 2.25 GM in NS 50 ML IV SCH ×2 (03:41→10:33)
[2019-03-26] MEDS: SYNTHROID IV SCH ×2 (05:37→06:53)
[2019-03-26] MEDS: LOVENOX SUBQ SCH (05:38)
[2019-03-26 06:46] LABS: BASO# 0.01 X1000 (0.0-0.2); BASO% 0.1 % (0.0-0.8); EOS# 0.22 X1000 (0.0-0.7); EOS% 1.6 % (0.0-10.0); HEMATOCRIT 40.7 % (37.0-47.0); HEMOGLOBIN 13.1 g/dL (12.0-16.0); IMM GRAN# 0.12 X1000 (0.0-0.04); IMM GRAN% 0.9 % (0.0-0.5); LYMPH# 1.12 X1000 (1.2-3.4); LYMPH% 8.1 % (20.5-51.1); MCH 29.6 PG (27-31); MCHC 32.2 g/dL (33-37); MCV 92.1 FL (81-99); MONO# 1.49 X1000 (0.11-0.59); MONO% 10.7 % (1.7-9.3); MPV 11.6 FL (7.4-10.4); NEUT# 10.94 X1000 (1.4-6.5); NEUT% 78.6 % (42.2-75.2); PLT 303 X1000 (130-400); RBC 4.42 XMIL (4.2-5.4); RDW 14.4 % (11.5-14.5)
[2019-03-26 07:08] LABS: CALCIUM 9.8 mg/dL (8.8-10.2); CREATININE 1.1 mg/dL (0.5-0.9); POTASSIUM 3.4 mmol/L (3.5-5.1)
[2019-03-26] MEDS: PERIDEX MT SCH ×2 (10:32→21:30)
[2019-03-26] MEDS: VITAMIN D PO SCH (10:32)
[2019-03-26] MEDS: POTASSIUM CHLORIDE 20 MEQ/SWI 20 MEQ/100 ML IVPB IV SCH ×2 (13:26→18:03)
[2019-03-26] MEDS ORDERED: NS 500 ML ONE (13:36)
--- NOTE | 2019-03-26 13:44 | PROGRESS NOTE ---
DATE: 03/26/2019 Ms. Blanche Thompson is now postoperative day 2 from enterotomy for gallstone ileus. Her NG tube has been removed. Her Rodriguez was removed this morning. She has been n.p.o. except for ice chips. She has been up in a chair. She is awake and cooperative. Her heart rate 66, blood pressure 146/70, O2 saturation 95%. She is afebrile. She is on IV Zosyn because we had some spillage of bowel contents during the procedure. Her white blood cell count went from 14 to 13, hematocrit 40%. Electrolytes are within normal limits. BUN and creatinine are 29 and 1.1. PLAN: We will probably start her on liquids tomorrow. Physical Therapy is seeing the patient and is working with her. We need to increase her activity. Midline wound is dressed. Abdomen is slightly distended. cc: MD Jose Mckinney MD
--- NOTE | 2019-03-26 18:06 | NEPHROLOGY PROGRESS NOTE ---
DATE: 03/26/2019 Time Seen: 07:15 SUBJECTIVE: Ms. Thompson is resting quietly in bed. States that she is feeling much better. She has had her Rodriguez catheter removed. She is to be started eating today. No complaints of chest pain or increased work of breathing. OBJECTIVE: Her most recent vital signs, temperature 97.8 degrees, blood pressure 149/90, heart rate 102, respirations are 22. She is on room air. Last recorded saturation 95%. She has had 2930 in and only 240 mL out to Rodriguez catheter. LABORATORY DATA: Sodium is 141, potassium 3.4, chloride 102, CO2 27, BUN is 29, creatinine is 1.1 with a glucose of 100. Anion gap is 12 calcium 9.8. White count 13.9, hemoglobin 13.1, hematocrit 40.7, platelet count 303,000. PHYSICAL EXAMINATION: General: This is a 74-year-old white female resting quietly in bed. She appears chronically ill. No acute distress. Skin: Warm and dry. HEENT: Normocephalic, atraumatic. Conjunctiva is pale pink. She has BRANDAN. Mucous membranes are dry. Neck: Supple. Trachea midline. No evidence of JVD. Cardiovascular: She is regular rate and rhythm. She has aortic stenosis. Lungs: Clear to auscultation bilaterally. Equal excursion on room air. Abdomen: Soft, slight tenderness noted on palpation. Positive bowel sounds. Genitourinary: Not inspected. Rodriguez catheter has been removed. Extremities: Have trace edema. No clubbing or cyanosis. Neurological: Alert and oriented x3. ASSESSMENT AND PLAN: 1. Acute kidney injury. The patient has responded nicely to intravenous fluids. Her creatinine is at 1.1 with a baseline of 0.6. BUN down to 29. We will evaluate patient's intake and output and creatinine in the morning. If this remains stable, we will sign off. 2. Hyponatremia responded to IV fluids well, electrolytes acid-base balance and anemia all look stable. 3. Status postoperative cholecystectomy followed by the primary care and surgery. I would like to thank you for allowing us to follow with this patient. Dictated by RAMIREZ Garcia for Bandar Dover MD Face to face encounter, data reviewed, discussed with Crow Sheldon on 03/26/19. I agree with the above assessment and plan of care. rg cc: RAMIREZ Garcia MD Hugh C. Nabers, MD MTDD
--- NOTE | 2019-03-26 18:22 | PROGRESS NOTE ---
DATE: 03/26/2019 SUBJECTIVE: The patient has no major complaints. She has no NG tube. She seems like she is doing a little bit better overall. OBJECTIVE: Vital Signs: Blood pressure is 151/74, heart rate 66, respiratory rate 18, temperature 97.4 degrees, 97% on room air. Cardiovascular: Regular rate and rhythm. Pulmonary: Bilateral breath sounds. Clear to auscultation. Gastrointestinal: Abdomen soft, nontender. Bowel sounds are still remote. LABORATORY DATA: White count 13, hemoglobin and hematocrit 13 and 40, platelets 303,000, potassium 3.1, creatinine is down to 1.1. PROBLEM LIST: 1. Acute kidney gallstone ileus. Postoperative day 2 of small-bowel enterotomy with repair. She is doing well. No major issues. Dr. Gould is following. She has been on Zosyn. We are continuing it for possible peritonitis. I think she can actually go on full dose because her kidney functions resolved. 2. Acute kidney injury, that is also resolved. Nephrology has been following. 3. Hypokalemia. We will supplement and follow. DISPOSITION: Pending her clinical status we will see how she does. Work on start getting her up and around. Once we advance her diet should be able to start getting her home. Continue to follow closely. cc: MD Jose Negrete MD
[2019-03-26] MEDS: ZOSYN 3.375 GM in NS 50 ML IV SCH (23:55)
[2019-03-27] MEDS ORDERED: ZOSYN ONE (00:02)
[2019-03-27] MEDS: OFIRMEV 1000 MG/ISOTONIC SOLN 1,000 MG/100 ML BOTTLE IV SCH ×5 (00:09→23:18)
[2019-03-27] MEDS: SYNTHROID IV SCH ×2 (05:43→06:54)
[2019-03-27] MEDS: LOVENOX SUBQ SCH (05:44)
[2019-03-27] MEDS: ZOSYN 3.375 GM in NS 50 ML IV SCH ×4 (05:45→22:04)
[2019-03-27 05:49] LABS: BASO# 0.03 X1000 (0.0-0.2); BASO% 0.2 % (0.0-0.8); EOS# 0.29 X1000 (0.0-0.7); EOS% 1.7 % (0.0-10.0); HEMATOCRIT 41.8 % (37.0-47.0); HEMOGLOBIN 13.5 g/dL (12.0-16.0); IMM GRAN# 0.19 X1000 (0.0-0.04); IMM GRAN% 1.1 % (0.0-0.5); LYMPH# 1.38 X1000 (1.2-3.4); LYMPH% 8.2 % (20.5-51.1); MCH 29.1 PG (27-31); MCHC 32.3 g/dL (33-37); MCV 90.1 FL (81-99); MONO# 1.37 X1000 (0.11-0.59); MONO% 8.1 % (1.7-9.3); MPV 10.8 FL (7.4-10.4); NEUT# 13.57 X1000 (1.4-6.5); NEUT% 80.7 % (42.2-75.2); PLT 356 X1000 (130-400); RBC 4.64 XMIL (4.2-5.4); RDW 14.3 % (11.5-14.5); WBC 16.83 X1000 (4.8-10.8)
[2019-03-27 06:19] LABS: AGAP 11; ALBUMIN 3.1 g/dL (3.5-5.0); BUN 19 mg/dL (8-22); CALCIUM 9.1 mg/dL (8.8-10.2); CHLORIDE 108 mmol/L (98-107); COSMO 289; CREATININE 0.8 mg/dL (0.5-0.9); ESTIMATED GFR > 60; GLUCOSE 102 mg/dL (70-104); PHOSPHORUS 1.6 mg/dL (2.7-4.5); POTASSIUM 3.8 mmol/L (3.5-5.1); SODIUM 144 mmol/L (136-145); TCO2 25 mmol/L (25-35)
[2019-03-27] MEDS: PERIDEX MT SCH ×2 (09:02→22:04)
[2019-03-27] MEDS: VITAMIN D PO SCH (09:02)
[2019-03-27] MEDS ORDERED: SODIUM PHOSPHATE 40 MEQ in NS 250 ML IV ONE (10:21)
[2019-03-27] MEDS: D5 1/2 NS + KCL 20 MEQ 1,000 ML IV SCH ×3 (10:58→13:59)
--- NOTE | 2019-03-27 11:16 | PROGRESS NOTE ---
DATE: 03/27/2019 SUBJECTIVE: Ms. Blanche Thompson is now postop day 3 from an exploratory laparotomy with an incision in her small bowel to remove a gallstone that was causing obstruction. She has not had any flatus yet. I think yesterday evening she was a little nauseated. She has been good about working with physical therapy and sitting up. Her midline incision is healing without evidence of infection. Her heart rate is 64, blood pressure 158/65, and O2 saturation 95%. She is afebrile. Her Rodriguez catheter tube is out. She has no NG tube. Her white blood cell count did increase. It went from 14 to 17 overnight. Her hematocrit is stable at 42%. She is on IV Zosyn because we had some contamination when we opened her small bowel. Her BUN and creatinine are 19 and 0.8, and those are improved. PLAN: We will continue encouraging activity. We will let her have clear liquids. We will continue IV antibiotics. cc: MD Jose Mckinney MD
--- NOTE | 2019-03-27 18:39 | PROGRESS NOTE ---
DATE: 03/27/2019 SUBJECTIVE: Patient has no major complaints. OBJECTIVE: Vital Signs: Blood pressure is 162/80, heart rate 69, respiratory rate 16, temperature 97.5 degrees. Cardiovascular: Regular rate and rhythm. Pulmonary: Bilateral breath sounds. Clear to auscultation. GI: Soft, nontender, nondistended. Bowel sounds are positive. LABORATORY DATA: White count 16, hemoglobin and hematocrit 13 and 41, platelets 356,000. Basic was normal. Phosphorus 1.6, albumin 3.1. PROBLEM LIST: 1. Gallstone ileus. This is not a kidney gallstone ileus. It is just a gallstone ileus. She is postoperative day 3 enterotomy. She is passing flatus. I think we can probably advance her diet per Dr. Gould. We will maintain her on antibiotics just because she may have a little bit of peritonitis, although she looks clinically fine. 2. Acute kidney injury. That has resolved. 3. Hypokalemia. That has also improved. She is hypophosphatemic, so we gave her a dose today. 4. Disposition. Hopefully, advance her diet soon and let her go home. cc: Guilherme Quinteros MD
[2019-03-28] MEDS: D5 1/2 NS + KCL 20 MEQ 1,000 ML IV SCH ×2 (03:32→06:52)
[2019-03-28 06:04] LABS: BASO# 0.05 X1000 (0.0-0.2); BASO% 0.4 % (0.0-0.8); EOS# 0.43 X1000 (0.0-0.7); EOS% 3.1 % (0.0-10.0); HEMATOCRIT 40.1 % (37.0-47.0); HEMOGLOBIN 13.2 g/dL (12.0-16.0); IMM GRAN# 0.27 X1000 (0.0-0.04); LYMPH# 1.17 X1000 (1.2-3.4); LYMPH% 8.6 % (20.5-51.1); MCH 29.4 PG (27-31); MCHC 32.9 g/dL (33-37); MCV 89.3 FL (81-99); MONO# 1.33 X1000 (0.11-0.59); MONO% 9.7 % (1.7-9.3); MPV 10.7 FL (7.4-10.4); NEUT# 10.43 X1000 (1.4-6.5); NEUT% 76.2 % (42.2-75.2); PLT 340 X1000 (130-400); RBC 4.49 XMIL (4.2-5.4); RDW 14.2 % (11.5-14.5); WBC 13.68 X1000 (4.8-10.8)
[2019-03-28 06:18] LABS: AGAP 10; ALBUMIN 2.9 g/dL (3.5-5.0); BUN 13 mg/dL (8-22); CALCIUM 8.9 mg/dL (8.8-10.2); CHLORIDE 111 mmol/L (98-107); COSMO 289; CREATININE 0.7 mg/dL (0.5-0.9); ESTIMATED GFR > 60; GLUCOSE 95 mg/dL (70-104); PHOSPHORUS 2.8 mg/dL (2.7-4.5); POTASSIUM 3.6 mmol/L (3.5-5.1); SODIUM 145 mmol/L (136-145); TCO2 24 mmol/L (25-35)
[2019-03-28] MEDS: ZOSYN 3.375 GM in NS 50 ML IV SCH ×4 (06:23→22:26)
[2019-03-28] MEDS: LOVENOX SUBQ SCH (06:23)
[2019-03-28] MEDS: SYNTHROID IV SCH (06:23)
[2019-03-28] MEDS: OFIRMEV 1000 MG/ISOTONIC SOLN 1,000 MG/100 ML BOTTLE IV SCH (06:52)
[2019-03-28] MEDS: PERIDEX MT SCH ×2 (08:52→22:26)
[2019-03-28] MEDS: VITAMIN D PO SCH (08:53)
[2019-03-28] MEDS ORDERED: NORCO-10 PO PRN (10:25)
[2019-03-28] MEDS ORDERED: D5 1/2 NS + KCL 20 MEQ 1,000 ML IV SCH (10:26)
--- NOTE | 2019-03-28 10:41 | PROGRESS NOTE ---
DATE: 03/28/2019 Now postop day 4 from exploratory laparotomy with enterotomy to remove a gallstone for gallstone ileus. I feel that postoperatively she has had a fairly normal convalescence. She has had her NG tube removed and her Rodriguez catheter tube is out. She has had no nausea or vomiting. She is voiding without difficulty. She is working with physical therapy and has been good about getting in the chair. She has really been NPO. We will start her on clear liquids. Her midline incision is without infection. It is intact. It seems to be healing okay. She still has some distention but her abdomen is not tightly distended. Her heart rate is 58, blood pressure 152/69, O2 saturation 97%. She has no work of breathing. Her white blood cell count has decreased from 17 to 14. Her hematocrit is stable. Electrolytes are within normal limits. We are continuing her IV Zosyn because of a possible infection of her gallbladder and also we had some spillage of small bowel contents when we removed her gallstone from the ileum. cc: MD Guilherme Mckinney MD
--- NOTE | 2019-03-28 17:50 | PROGRESS NOTE ---
DATE: 03/28/2019 SUBJECTIVE: The patient has no major complaints. She is very pleasant. She has had 2 bowel movements. OBJECTIVE: Blood pressure 152/75, heart rate 69, respiratory rate 14, temperature 98.3 degrees, 99% on room air.Cardiovascular: Regular rate and rhythm. Pulmonary: Bilateral breath sounds clear to auscultation. Gastrointestinal: Soft, nontender, nondistended. Bowel sounds were positive. Vascular: The patient is concerned about her IV because she is running out of sites. LABORATORY DATA: Her white count has come down it is at 13, hemoglobin 13, hematocrit 40, platelets 340,000. Her basic was normal. Albumin a little low at 2.9. PROBLEM LIST: 1. Gallstone ileus status post enterotomy of her small bowel with gallstone extraction. She is passing flatus. Her diet has been advanced. I think she is doing pretty well. I think we just need to complete a course of antibiotics. She has been on Zosyn I think pretty much since the 4th, so she has been on it, it says day 3, but I think she has been on it longer than that because we initiated it at a lower dose, so she had been on Zosyn since the 3rd so this is day 5. I would complete a 7-day course. If we are going to switch to p.o. due to loss of IV access, I would do Augmentin 875 for another 7 days or at the discretion of the future provider. 2. Acute kidney injury. That is resolved. 3. Hypokalemia. That seems to have improved as well. DISPOSITION: At the request of Surgery, but I think she should be able to go home soon. I would say probably in the next 24 hours at the discretion of Surgery. I am not sure how much she has been doing as far as getting up and around, though, but there are orders to get her up and around, and she is focused on going home above anything else. cc: MD SAM Negrete
[2019-03-29] MEDS: ZOSYN 3.375 GM in NS 50 ML IV SCH ×4 (04:38→17:02)
[2019-03-29] MEDS: LOVENOX SUBQ SCH (06:37)
[2019-03-29] MEDS: SYNTHROID PO SCH (06:37)
[2019-03-29 06:59] LABS: BASO# 0.04 X1000 (0.0-0.2); BASO% 0.3 % (0.0-0.8); EOS# 0.38 X1000 (0.0-0.7); EOS% 3.1 % (0.0-10.0); HEMATOCRIT 40.3 % (37.0-47.0); HEMOGLOBIN 13.3 g/dL (12.0-16.0); IMM GRAN# 0.43 X1000 (0.0-0.04); IMM GRAN% 3.5 % (0.0-0.5); LYMPH# 1.38 X1000 (1.2-3.4); LYMPH% 11.4 % (20.5-51.1); MCH 29.2 PG (27-31); MCV 88.6 FL (81-99); MONO# 1.41 X1000 (0.11-0.59); MONO% 11.6 % (1.7-9.3); MPV 10.4 FL (7.4-10.4); NEUT# 8.49 X1000 (1.4-6.5); NEUT% 70.1 % (42.2-75.2); PLT 358 X1000 (130-400); RBC 4.55 XMIL (4.2-5.4); RDW 14.4 % (11.5-14.5); WBC 12.13 X1000 (4.8-10.8)
[2019-03-29 07:18] LABS: AGAP 9; BUN 8 mg/dL (8-22); CALCIUM 9.2 mg/dL (8.8-10.2); CHLORIDE 108 mmol/L (98-107); COSMO 280; CREATININE 0.7 mg/dL (0.5-0.9); ESTIMATED GFR > 60; GLUCOSE 104 mg/dL (70-104); SODIUM 141 mmol/L (136-145); TCO2 24 mmol/L (25-35)
[2019-03-29] MEDS: VITAMIN D PO SCH (10:18)
[2019-03-29] MEDS: PERIDEX MT SCH ×2 (10:18→20:45)
[2019-03-29] MEDS ORDERED: KLOR-CON PO ONE (13:23)
--- NOTE | 2019-03-29 17:33 | PROGRESS NOTE ---
DATE: 03/29/2019 SUBJECTIVE: The patient has no major complaints. She is pleasant. She has been having bowel movements. No diarrhea. She is tolerating p.o. as well. OBJECTIVE: Vital Signs: Temperature 97.6 degrees, pulse 70, respiratory rate 16, blood pressure 147/77, oxygen saturation 99 on room air. HEENT: Head normocephalic, no trauma. PERRLA. Neck: Supple. No JVD. No masses. Central trachea. Chest: Clear to auscultation. No wheezing. No rales. Abdomen: Soft, nontender, nondistended. No hepatosplenomegaly. She does have a midline scar that looks clean, dry, and intact. Michelle look fine. Extremities: No edema, no clubbing, no cyanosis. Neurological: The patient is alert. She is oriented x3. No focal deficits. LABORATORY: WBC 12.1, hemoglobin 13.3, hematocrit 40.3, platelets 358,000. Sodium 141, potassium 3, chloride 108, bicarbonate 24, BUN 8, creatinine 0.7, glucose 104, calcium 9.2. ASSESSMENT AND PLAN: 1. Gallstone ileus status post enterotomy of her small bowel with gallstone extraction. She is passing gas and also having bowel movements. I think she is doing pretty well. We will continue with antibiotics. I will probably continue with antibiotics at home to complete 7 days. She can be discharged with Augmentin 875. If she going to p.o. medication, probably we will continue with that for 5 to 7 days. 2. Acute kidney injury, resolved. 3. Hypokalemia. I will replace the potassium today again. cc: Hermes Campos MD
--- NOTE | 2019-03-29 17:38 | PROGRESS NOTE ---
DATE: 03/29/2019 SUBJECTIVE: Ms Blanche Thompson is now postoperative day 5 from exploratory laparotomy with enterotomy and removal of a gallstone that was causing obstruction. She, I feel, is doing well postoperatively. We have been slowly advancing her diet. We will advance it to a regular diet. OBJECTIVE: Her midline incision has a little bit of erythema, but otherwise, it is intact. Her abdomen is mostly soft. She has had some bowel activity. She has been good about ambulating. She is voiding on her own. Her white blood cell count is improving daily. It went from 13.7 to 12, her hematocrit is stable. Electrolytes are within normal limits. PLAN: We will advance her diet. We will check labs again tomorrow in hopes that her white blood cell count continues to improve. We are keeping her on IV Zosyn. We are trying to increase her activity. She says that she wants to go home from the hospital. VITAL SIGNS: Her heart rate is 70, blood pressure 177/79, O2 saturation 100%. She is afebrile. cc: MD Hermes Mckinney MD
[2019-03-30] MEDS: ZOSYN 3.375 GM in NS 50 ML IV SCH ×2 (05:21→11:40)
[2019-03-30] MEDS: SYNTHROID PO SCH (06:16)
[2019-03-30] MEDS: LOVENOX SUBQ SCH (06:16)
[2019-03-30 07:05] LABS: BASO# 0.02 X1000 (0.0-0.2); BASO% 0.2 % (0.0-0.8); EOS# 0.33 X1000 (0.0-0.7); EOS% 2.9 % (0.0-10.0); HEMATOCRIT 39.6 % (37.0-47.0); LYMPH# 1.69 X1000 (1.2-3.4); MCH 29.7 PG (27-31); MCHC 32.8 g/dL (33-37); MCV 90.4 FL (81-99); MONO# 1.31 X1000 (0.11-0.59); MONO% 11.6 % (1.7-9.3); MPV 10.5 FL (7.4-10.4); NEUT# 7.91 X1000 (1.4-6.5); NEUT% 70.3 % (42.2-75.2); PLT 345 X1000 (130-400); RBC 4.38 XMIL (4.2-5.4); RDW 14.7 % (11.5-14.5); WBC 11.26 X1000 (4.8-10.8)
[2019-03-30 07:14] LABS: AGAP 10; BUN 8 mg/dL (8-22); CALCIUM 9.6 mg/dL (8.8-10.2); CHLORIDE 108 mmol/L (98-107); COSMO 283; CREATININE 0.7 mg/dL (0.5-0.9); ESTIMATED GFR > 60; GLUCOSE 101 mg/dL (70-104); POTASSIUM 3.4 mmol/L (3.5-5.1); SODIUM 143 mmol/L (136-145); TCO2 25 mmol/L (25-35)
[2019-03-30] MEDS: VITAMIN D PO SCH (09:30)
[2019-03-30] MEDS: PERIDEX MT SCH (09:30)
[2019-03-30 11:36] VITALS: BP 154/71
--- NOTE | 2019-03-30 16:41 | PROGRESS NOTE ---
DATE: 03/30/2019 SUBJECTIVE: This patient has been evaluated in the morning, no major complaints. She was sitting at the bedside. She was doing fine. She is tolerating p.o. No nausea. No vomiting. Some abdominal pain, but that was suspected due to the surgery. Positive bowel sounds. She is having bowel movement. OBJECTIVE: Vital Signs: Temperature 98.5 degrees, pulse 78, respiratory rate 18, blood pressure 154/71, oxygen saturation 98 on room air. HEENT: Head normocephalic, no trauma. PERRLA. Neck: Supple. No JVD. No masses. Central trachea. Chest: Clear to auscultation. No wheezing. No rales. Abdomen: Soft, nontender, nondistended. No hepatosplenomegaly. She does have a midline scar that looks clean, dry and intact. Michelle look fine. Extremities: No edema, no clubbing, no cyanosis. Neurological examination: The patient is alert. She is oriented x3. No focal deficits. LABORATORY: WBC 11.2, hemoglobin 13, hematocrit 39.6, platelet 345. Sodium 143, potassium 3.4, chloride 108, bicarbonate 25. BUN 8, creatinine 0.7, glucose 101, calcium 9.6. ASSESSMENT AND PLAN: 1. Gallstone ileus, status post enterotomy of her small bowel with gallstone extraction, she is passing gas. She is also having bowel movements. She is tolerating oral. I think she is doing fine. She might be discharged. 2. Acute kidney injury, resolved. 3. Hypokalemia, much better. Overall, this patient is doing better. She can be discharged, continue with antibiotics at home, and follow up closely with her surgeon. cc: Hermes Campos MD
--- NOTE | 2019-03-30 20:10 | DISCHARGE SUMMARY ---
ADMISSION DATE: 03/24/2019 DISCHARGE DATE: 03/30/2019 AMITTING DIAGNOSIS: Gallstone ileus. POSTOPERATIVE: Gallstone ileus. PRINCIPAL PROCEDURE: Exploratory laparotomy with small bowel enterotomy and removal of 3 cm gallstone on 03/24/2019. DISCHARGE DIET: Regular. DISCHARGE DISPOSITION: She will return to our outpatient offices the end of next week for wound inspection and removal of skin clips. DISCHARGE DISABILITIES: Full. DISCHARGE MEDICATIONS: She is to return to her home medications. I am going to discharge her on Cipro 500 mg p.o. b.i.d. for about 3 more days. HOSPITAL COURSE: Ms. Blanche Thompson is a 74-year-old white female who is a patient of Dr. Jose James. She is admitted on 03/22/2019 with upper abdominal pain and vomiting. She initially underwent an upper endoscopy per Dr. Jose James on 03/22/2019. She then had a Gastroenterology consultation, hospitalist consultation, a nuclear medicine gastric emptying study and then a CT scan on 03/23/2019. The CT scan suggested a gallstone ileus. It showed a small bowel obstruction and you could see the gallstone in the ilium. The following day, I took her to surgery because Dr. James was planning to travel out of the country and performed an exploratory laparotomy with an enterotomy of the ilium to remove the gallstone. Dr. Jose James assisted in this procedure prior to him leaving the country. After surgery, she did have an NG tube that was able to be quickly removed on postop day 1 or 2. She had a Rodriguez catheter tube in place which was also removed in the 1st postoperative days and we felt her postoperative convalescence was normal. We slowly introduced her diet and at the time of discharge she was able to ambulate in the conner. She was voiding and having bowel movements. She was tolerating a regular diet. Her midline incision had some erythema but no evidence of purulence. It was intact. Her white blood cell count was improving daily. At discharge her heart rate was 52, blood pressure 151/54, O2 saturation 100%. She is afebrile. Her white blood cell count was 11. Hematocrit was stable at 39%. Electrolytes were within normal limits. DISCHARGE INSTRUCTIONS: It was felt safe to discharge her home under the care of her family with followup in our outpatient offices next week and me adding p.o. Cipro to her home medications. She knows to contact me with any problems such as fever or increasing abdominal pain or distention. cc: MD Hermes Mckinney MD
== END 2019-03-30 12:25 | disposition home or self-care (01) | DRG 345 ==
LOC: DIRADM 06:20 → OR 06:20 → 4N 09:31
PROVIDERS: ADMIT Internal Medicine; ATTEND Surgery